=== PATIENT | male | born 1950 | race Caucasian/White ===

== ENCOUNTER 2025-04-03 18:50 | Emergency (ER) | payer OTHER, MEDICARE, SELFPAY ==
[2025-04-03] VITALS (8 sets, daily range): BP systolic 88–94; BP diastolic 56–65; PULSE 50–112; RESP 17–37; TEMP 36.6; O2SAT 89–99
--- NOTE | ~2025-04-03 | CT_ITS ---
EXAMINATION: CTA chest PE abdomen pel DATE: 04/03/2025 21:18 INDICATION: Dyspnea. Nausea. TECHNIQUE: Computed tomography angiography (CTA) of the chest was performed with 100 mL Omnipaque-350 intravenous contrast timed to evaluate the pulmonary arteries. Coronal maximum intensity projection 3D-reconstructions were created by the technologist. Computed tomography (CT) of the abdomen and pelvis was performed with intravenous contrast. Automated exposure control and iterative reconstruction technique were employed. The dose-length product was 2209.69 mGy-cm. COMPARISON: None. FINDINGS: CTA chest: There is mild emphysema. A calcified right lung nodule and calcified right hilar lymph nodes are consistent with old granulomatous disease. There are airspace and groundglass opacities in left upper lobe, consistent with pneumonia. There is mild atelectasis in the lower lobes. No pleural effusion. The heart size is normal. There are coronary artery calcifications. No pericardial effusion. There is no pulmonary embolus. There is moderate thoracic spondylosis. CT abdomen and pelvis: The liver and gallbladder are normal. Calcifications in the spleen are consistent with old granulomatous disease. There is a 12 mm hypodense mass in the spleen, likely a cyst or granulomatous disease. The pancreas and adrenal glands are normal. There is cortical thinning of the k idneys. There is a 7 mm cyst in left kidney. There are bilateral inguinal hernias containing fat. There is diverticulosis of the colon without evidence of diverticulitis. There are no dilated loops of bowel. The appendix is not visualized. There is a 2.1 cm pseudoaneurysm of right common femoral artery. There is a small volume of hematoma in the right retroperitoneum near the pseudoaneurysm. There are no pathologically enlarged lymph nodes. There is no free intraperitoneal fluid. There is a total left hip arthroplasty. There is severe lumbar spondylosis. IMPRESSION: 1. No pulmonary embolus. 2. Left upper lobe pneumonia. 3. Mild emphysema. 4. 2.1 cm pseudoaneurysm of right common femoral artery with small right retroperitoneal hematoma. Reviewed, dictated and finalized at location E. IMPRESSION: 1. No pulmonary embolus. 2. Left upper lobe pneumonia. 3. Mild emphysema. 4. 2.1 cm pseudoaneurysm of right common femoral artery with small right retrop eritoneal hematoma.
--- NOTE | ~2025-04-03 | XR_ITS ---
EXAMINATION: XR chest 1V portable COMPARISON: No comparisons available. HISTORY: SHOB, weakness FINDINGS: Mild pulmonary venous congestion. Small left basilar infiltrate and effusion. No pneumothorax. Mild cardiomegaly. Mediastinal and hilar contours are within normal limits. Bony thorax no acute abnormality. Miscellaneous: None Impression: Mild CHF Reviewed, dictated and finalized at location P. Impression: Mild CHF
--- NOTE | ~2025-04-03 | CT_ITS ---
EXAMINATION: CT brain wo con DATE: 04/03/2025 21:18 INDICATION: Weakness. TECHNIQUE: Computed tomography (CT) of the head was performed without intravenous contrast. The mA was adjusted according to patient size. Iterative reconstruction technique was employed. The dose-length product was 605.33 mGy-cm. COMPARISON: None FINDINGS: There is no intracranial hemorrhage, acute infarction, or abnormal intracranial mass lesion. The ventricles are normal in size. There are likely changes of ocular lens replacement surgeries. There is mild mucosal thickening in the paranasal sinuses. The mastoid air cells are normal. IMPRESSION: 1. Normal brain. Reviewed, dictated and finalized at location E. IMPRESSION: 1. Normal brain.
--- NOTE | 2025-04-03 19:50 | ECG_ITS ---
Test Date: 2025-04-03 20:09:14 Measurements Intervals [place] Rate: 87 P: 0 MS: 0 QRS: -23 QRSD: 170 T: -24 QT: 385 QTc: 463 Interpretive Statements ATRIAL FIBRILLATION RIGHT BUNDLE BRANCH BLOCK INFERIOR INFARCT, AGE INDETERMINATE BASELINE ARTIFACT- I, II, III, AVR, AVL, AVF, V4-V6 ABNORMAL ECG No previous ECG available for comparison Electronically Signed On 04-04-2025 06:17:34 CDT by Randal Segovia D.O.
[2025-04-03 20:09] LABS: Hematocrit 36.8 % (42.0-52.0); Hemoglobin 12.1 g/dL (14.0-18.0); Immature Granulocyte Percent A 0.3 % (0-0.5); Lymphocytes Absolute Auto 2.34 K/mm3 (0.9-3.2); Mean Corpuscular HGB Conc 32.9 g/dl (32-36); Mean Corpuscular Hemoglobin 34.9 pg (26-34); Mean Corpuscular Volume 106.1 fl (80-100); Nucleated Red Blood Cells Absolute Auto 0.050 K/mm3 (0.0-0.012); Nucleated Red Blood Cells Perc 0.6 % (0.0-0.2); Platelet Count Result 500 k/mm3 (150-375); Red Blood Count 3.47 M/mm3 (4.6-6.20); White Blood Count 9.1 K/mm3 (4.5-10.0)
--- NOTE | 2025-04-03 20:16 | ED_ITS ---
HPI - Weakness General Chief complaint: Weakness Stated complaint: WEAKNESS,LOW BP Time Seen by Provider: 04/03/25 20:09 Source: patient Mode of arrival: EMS Limitations: no limitations History of Present Illness HPI Narrative: Patient is a 74-year-old male presents to the emergency department complaining not feeling well is really tired over the past 1 week, worsening difficulty breathing, nausea. Patient denies any focal weakness or numbness. Patient's he wears 2-3 L of supplemental oxygen at baseline at all times. Patient notes that he has heart failure, COPD, AFib on Eliquis. Patient has recent changes to his medications and which is metoprolol was increased to 100 mg and had another change to medication that he is unsure of. Patient admits to being on diuretics. Patient denies any unilateral lower extremity swelling, new lower extremity swelling. Patient admits to orthopnea. Patient denies cough. Patient denies fever. Patient admits to nausea without any vomiting. Patient denies chest pain. [facility] and admits to recent cardiac catheterization. Related Data Allergies Allergy/AdvReac Type Severity Reaction Status Date / Time Sulfa (Sulfonamide Allergy Rash Verified 04/03/25 18:51 Antibiotics) Review of Systems 2 Review of Systems: A 10 system review of systems was completed on the patient and is negative except for what is stated in the HPI. Nursing and ancillary documentation was reviewed. Exam 2 Narrative: CONST: Mild respiratory distress, tachypneic to 23 breaths per minute, on 2.5 L supplemental oxygen via nasal cannula. HENMT: Head is normocephalic and atraumatic. Tacky mucous membranes. No posterior oropharynx erythema. EYES: No scleral icterus. No conjunctival injection or pallor. PERRL. NECK: No meningeal signs. RESP: Speaking in phrases. Diminished breath sounds diffusely, end-expiratory wheeze with a mildly prolonged expiratory phase. CARDIO: Tachycardic rate. Irregularly irregular rhythm. 2+ DP and radial pulses bilaterally. GI: Nondistended. No tenderness to palpation. Soft. : No CVA tenderness to palpation. SKIN: No rashes or lesions noted on exposed skin. NEURO: Oriented x3. Moves all extremities. No focal neurological deficits. EXTREM/MSK/BACK: No pedal edema. No active bleeding coming from the right groin recent catheterization site. PSYCH: Normal affect. Course Vital Signs Vital signs: Vital Signs Temperature 97.8 F 04/03/25 19:32 Pulse Rate 50 L 04/03/25 19:32 Respiratory Rate 18 04/03/25 19:32 Blood Pressure 88/56 L 04/03/25 19:32 Pulse Oximetry 99 04/03/25 19:32 Oxygen Delivery Room Air 04/03/25 19:32 Temperature 97.8 F 04/03/25 19:32 Pulse Rate 95 04/04/25 05:02 Respiratory Rate 19 04/04/25 05:02 Blood Pressure 112/73 04/04/25 05:02 Pulse Oximetry 93 04/04/25 05:02 Oxygen Delivery Room Air 04/03/25 19:32 MDM - Weakness MDM Narrative Medical decision making narrative: Patient presents with the above complaint. Initial vitals are remarkable for bradycardia with a pulse of 50, a my examination patient is tachycardic with a pulse of 102. Low blood pressure with a blood pressure of 88/56. Physical examination as noted above. Differential diagnosis includes but not limited to: Heart failure exacerbation, COPD exacerbation, ACS, pulmonary embolism, pneumonia, metabolic derangement, dehydration, electrolyte derangement, adverse effect of medication, symptomatic bradycardia. Plan discussed: Laboratory analysis, EKG, continues cardiac monitoring, continuous pulse oximetry, CT head, CT chest abdomen pelvis, blood cultures, patient was reportedly given a 1 L bolus by EMS, given concern for fluid overload limited crystalloids administer with ideal body weight being in the 70 kg range, patient given additional 500 cc bolus, DuoNeb breathing treatment, Zofran, will consider NIPPV if patient doesn't have improvement in his dyspnea. VBG ordered. Patient is on his baseline home O2. EKG performed at 8:09 p.m. reveals a rate of 87, rhythm is atrial fibrillation, right bundle branch block, no ST elevations or depressions, Q-wave present in lead 3, AVF, V3, V2, V1, QRS duration is 170 milliseconds, QTC interval is 463 milliseconds, no old EKG on file for comparison. CBC reveals a hemoglobin of 12.1, platelet count of 500. VBG reveals a pCO2 of 43.8, pH is 7.349. Comprehensive metabolic panel reveals a sodium 136, creatinine 1.32, glucose of 127. Total creatine kinase is 22. CRP is 11.6. BNP is 872. Lipase 31. Procalcitonin is 0.2. TSH is 2.22. Magnesium is 2.2. Phosphorus is 3.1. Lactic acid is 2.5. COVID and influenza and RSV testing are negative. Troponin is less than 0.012. CT of the head reveals no acute intracranial abnormality. CT of the chest reveals no evidence of acute main/proximal central pulmonary embolism. Cardiomegaly. Patchy ground-glass nodular infiltrates, may reflect infection/inflammation and/or aspiration. No pleural effusion or pneumothorax. CT abdomen pelvis reveals right pericolic gutter irregular fluid collection/hematoma with surrounding stranding 2.1 x 3.3 cm. Suspect proximal right common femoral artery pseudoaneurysm 1.7 cm. Correlate with dedicated ultrasound. Possible sequelae of recent intervention, correlate clinically. Urinary bladder wall thickening, nonspecific. Correlate with urinalysis. No hydronephrosis or nephrolithiasis. Questionable renal cortical low attenuation areas, artifact versus infection. No bowel obstruction or inflammation. Diverticulosis. Hepatic steatosis and hepatomegaly. Patient blood pressure is responding to IV fluids, no signs of any pulmonary edema on CT, most recent blood pressure is 98/69. Patient ordered antibiotics and further IV fluids. Urinalysis reveals 3+ glucose and greater than 1.045 specific gravity. [facility] contacted, pending call back. I spoke with Dr. Faust from the [facility] who has accepted the patient for transfer. CRITICAL CARE ADDENDUM: Indication: Hypotension, bradycardia, dysrhythmia, heart failure, sepsis Time type: intermittent I provided a total of 45 minutes of critical care excluding separately billable procedures. This includes time w/ initial bedside evaluation, reviewing old records, review of testing done while under my care, discussion w/ nurses, and guiding the patient?s care while in the emergency department. Approximate time distribution: 10 minutes ? Initial evaluation, d/w involved parties, attempting to gather old records. 10 minutes ? Documenting medical record 10 minutes ? Review of results (EKGs, labs, imaging) 10 minutes ? Serial repeat bedside evaluation 5 minutes ? Discussing case with multiple providers Please see main chart for details. Excludes separately billable procedures. Medical Records Attestation: I reviewed the patient's medical records. Lab Data Attestation: I reviewed the patient's lab results. 04/03/25 20:02 04/03/25 20:02 Labs: Lab Results 04/03/25 04/03/25 04/03/25 Range/Units 20:02 20:17 20:28 WBC 9.1 (4.5-10.0) K/mm3 RBC 3.47 L (4.6-6.20) M/mm3 Hgb 12.1 L (14.0-18.0) g/dL Hct 36.8 L (42.0-52.0) % MCV 106.1 H (80-100) fl MCH 34.9 H (26-34) pg MCHC 32.9 (32-36) g/dl RDW 16.0 H (11.5-14.5) % Plt Count 500 H (150-375) k/mm3 MPV 9.9 (7.4-10.4) fl Immature Gran % (Auto) 0.3 (0-0.5) % Neut % (Auto) 57.1 (45.5-73.1) % Lymph % (Auto) 25.8 (18.3-44.2) % Bulloch % (Auto) 11.1 H (2.6-8.5) % Eos % (Auto) 4.4 (0-4.4) % Baso % (Auto) 1.3 H (0.2-1.2) % Lymph # (Auto) 2.34 (0.9-3.2) K/mm3 Bulloch # (Auto) 1.0 H (0.1-0.6) K/mm3 Eos # (Auto) 0.4 H (0-0.3) K/mm3 Baso # (Auto) 0.1 (0.0-0.1) K/mm3 Abs Immat Gran (auto) 0.03 (0.00-0.031) K/mm3 Absolute Neuts (auto) 5.2 (1.3-6.7) K/mm3 Absolute Nucleated RBC 0.050 H (0.0-0.012) K/mm3 Nucleated RBC % 0.6 H (0.0-0.2) % PT 20.6 H (11.1-14.7) Seconds INR 1.8 APTT 46.8 H (22.3-36.8) Seconds Sodium 136 L (137-145) mmol/L Potassium 3.6 (3.4-5.0) mmol/L Chloride 103 (98-107) mmol/L Carbon Dioxide 24 (22-30) mmol/L Anion Gap 9 (4-12) mmol/L BUN 19 (9-20) mg/dL Creatinine 1.32 H (0.7-1.3) mg/dL Estim Creat Clear Calc 57 ml/min Estimated GFR 53 L (59 - ) Glucose 127 H (65-110) mg/dL Lactic Acid 2.5 H (0.7-2.0) mmol/L Calcium 8.9 (8.4-10.2) mg/dL Phosphorus 3.1 (2.5-4.5) mg/dL Magnesium 2.2 (1.6-2.3) mg/dL Total Bilirubin 0.4 (0.2-1.3) mg/dL AST 50 (17-59) U/L ALT 27 (6-50) U/L Alkaline Phosphatase 96 (38-126) U/L Total Creatine Kinase 22 L (55-170) U/L Troponin I < 0.012 (0.000-0.034) ng/mL C-Reactive Protein 11.6 H (<1.0) mg/dL NT-Pro-B Natriuret Pep 872 H (19.9-100) pg/mL Total Protein 7.8 (6.3-8.2) g/dL Albumin 3.5 (3.5-5.1) g/dL Lipase 31 (23-300) U/L Procalcitonin 0.2 ng/mL TSH (Reflex) 2.220 (0.465-4.68) uIU/mL Urine Color (Yellow) Urine Appearance (Clear) Urine pH (5.0-9.0) Ur Specific Dola (1.001-1.035) Urine Protein (Negative) mg/dL Urine Glucose (UA) (Negative) mg/dL Urine Ketones (Negative) mg/dL Ur Blood (Man) (Negative) Urine Nitrate (Negative) Urine Bilirubin (Negative) Urine Urobilinogen (<2.0) mg/dL Add Ur Microanalysis Leukocyte Esterase Rfl (Negative) SHELLY/UL Urine RBC (0-2) /hpf Urine WBC (0-3) /hpf Ur Squamous Epith Cells (Few) /hpf Urine Bacteria /hpf Urine Casts Influenza A (RT-PCR) Negative (Negative) Influenza B (RT-PCR) Negative (Negative) RSV (RT-PCR) Negative (Negative) SARS-CoV-2 RNA (RT-PCR) Negative (Negative) 04/03/25 04/03/25 Range/Units 22:34 22:37 WBC (4.5-10.0) K/mm3 RBC (4.6-6.20) M/mm3 Hgb (14.0-18.0) g/dL Hct (42.0-52.0) % MCV (80-100) fl MCH (26-34) pg MCHC (32-36) g/dl RDW (11.5-14.5) % Plt Count (150-375) k/mm3 MPV (7.4-10.4) fl Immature Gran % (Auto) (0-0.5) % Neut % (Auto) (45.5-73.1) % Lymph % (Auto) (18.3-44.2) % Bulloch % (Auto) (2.6-8.5) % Eos % (Auto) (0-4.4) % Baso % (Auto) (0.2-1.2) % Lymph # (Auto) (0.9-3.2) K/mm3 [place] # (Auto) (0.1-0.6) K/mm3 Eos # (Auto) (0-0.3) K/mm3 Baso # (Auto) (0.0-0.1) K/mm3 Abs Immat Gran (auto) (0.00-0.031) K/mm3 Absolute Neuts (auto) (1.3-6.7) K/mm3 Absolute Nucleated RBC (0.0-0.012) K/mm3 Nucleated RBC % (0.0-0.2) % PT (11.1-14.7) Seconds INR APTT (22.3-36.8) Seconds Sodium (137-145) mmol/L Potassium (3.4-5.0) mmol/L Chloride (98-107) mmol/L Carbon Dioxide (22-30) mmol/L Anion Gap (4-12) mmol/L BUN (9-20) mg/dL Creatinine (0.7-1.3) mg/dL Estim Creat Clear Calc ml/min Estimated GFR (59 - ) Glucose (65-110) mg/dL Lactic Acid 1.6 (0.7-2.0) mmol/L Calcium (8.4-10.2) mg/dL Phosphorus (2.5-4.5) mg/dL Magnesium (1.6-2.3) mg/dL Total Bilirubin (0.2-1.3) mg/dL AST (17-59) U/L ALT (6-50) U/L Alkaline Phosphatase (38-126) U/L Total Creatine Kinase (55-170) U/L Troponin I (0.000-0.034) ng/mL C-Reactive Protein (<1.0) mg/dL NT-Pro-B Natriuret Pep (19.9-100) pg/mL Total Protein (6.3-8.2) g/dL Albumin (3.5-5.1) g/dL Lipase (23-300) U/L Procalcitonin ng/mL TSH (Reflex) (0.465-4.68) uIU/mL Urine Color Yellow (Yellow) Urine Appearance Clear (Clear) Urine pH 5.0 (5.0-9.0) Ur Specific Dola > 1.045 H (1.001-1.035) Urine Protein Trace (Negative) mg/dL Urine Glucose (UA) 3+ H (Negative) mg/dL Urine Ketones Negative (Negative) mg/dL Ur Blood (Man) Negative (Negative) Urine Nitrate Negative (Negative) Urine Bilirubin Negative (Negative) Urine Urobilinogen 1.0 (<2.0) mg/dL Add Ur Microanalysis Reviewed Leukocyte Esterase Rfl Negative (Negative) SHELLY/UL Urine RBC 0-2 (0-2) /hpf Urine WBC 0-5 (0-3) /hpf Ur Squamous Epith Cells Occasional (Few) /hpf Urine Bacteria None seen /hpf Urine Casts >20 Influenza A (RT-PCR) (Negative) Influenza B (RT-PCR) (Negative) RSV (RT-PCR) (Negative) SARS-CoV-2 RNA (RT-PCR) (Negative) ABG Data ABG results: 04/03/25 20:28 VBG pH 7.349 VBG pCO2 43.8 VBG pO2 131.4 H VBG HCO3 23.6 L O2 Delivery Device Not Reportable O2 Liters/Min Not Reportable FiO2 21 Critical Care Time Critical Care Time Critical Care Time: Yes Total Critical Care Time: 45 Discharge Plan Discharge Clinical Impression: Heart failure, Pseudoaneurysm, Symptomatic bradycardia, Atrial fibrillation, Hypotension Pneumonia Qualifiers: Pneumonia type: due to unspecified organism Laterality: unspecified laterality Lung location: unspecified part of lung Qualified Code(s): J18.9 - Pneumonia, unspecified organism Patient Disposition: [facility] Condition: Serious Patient Language: Mohawk Follow-up/Referrals: [facility] [Primary Care Provider, Medical] Time of Disposition: 23:51
[2025-04-03 20:21] LABS: Alanine Aminotransferase 27 U/L (6-50); Albumin Level 3.5 g/dL (3.5-5.1); Alkaline Phosphatase 96 U/L (38-126); Anion Gap 9 mmol/L (4-12); Aspartate Amino Transferase 50 U/L (17-59); Bilirubin,Total 0.4 mg/dL (0.2-1.3); Blood Urea Nitrogen 19 mg/dL (9-20); Calcium 8.9 mg/dL (8.4-10.2); Carbon Dioxide 24 mmol/L (22-30); Chloride 103 mmol/L (98-107); Estimated CRCL calculation 57 ml/min; Estimated Glomerular Filt Rate 53; Glucose 127 mg/dL (65-110); Potassium 3.6 mmol/L (3.4-5.0); Sodium 136 mmol/L (137-145); Total Protein 7.8 g/dL (6.3-8.2)
[2025-04-03 20:48] LABS: Creatine Kinase 22 U/L (55-170); Lipase 31 U/L (23-300); Magnesium 2.2 mg/dL (1.6-2.3)
[2025-04-03 20:52] LABS: Procalcitonin 0.2 ng/mL
[2025-04-03 20:54] LABS: NT Pro B Type Natriuretic Pept 872 pg/mL (19.9-100)
[2025-04-03 20:58] LABS: CRP 11.6 mg/dL (<1.0)
[2025-04-03 21:17] LABS: Fractional Inspired Oxygen 21 %; HCO3 VBG 23.6 mEq/l (24.0-30.0); PCO2 VBG 43.8 mmHg (42.0-48.0); PO2 VBG 131.4 mmHg (35.0-45.0); pH VBG 7.349 (7.300-7.400)
[2025-04-03 21:18] LABS: Influenza A QL RT-PCR Negative (Negative); Influenza B QL RT-PCR Negative (Negative); RSV RNA, RT-PCR Negative (Negative); SARS-CoV-2 RNA PCR Negative (Negative)
[2025-04-03 21:21] LABS: Thyroid Stimulating Hormone Reflex 2.220 uIU/mL (0.465-4.68)
[2025-04-03] MEDS: ALBUTEROL SULFATE NEB 2.5 MG/3 ML INH 5 MG INHALATION (21:29)
[2025-04-03] MEDS: IPRATROPIUM 0.5 MG/ALBUTEROL SULFATE 2.5 MG (BASE) AMPUL.NEB 3 ML INHALATION ×3 (21:32→21:58)
--- NOTE | 2025-04-03 21:52 | PCRCNOTE ---
Updraft treatment delayed due to stabilizing and intubating another patient. Multiple orders were placed within same timeframe.
[2025-04-03] MEDS: ONDANSETRON INJ 4 MG/2 ML VIAL IV PUSH (22:20)
[2025-04-03] MEDS: SODIUM CHLORIDE 0.9% IV 500 ML 999 ML IV CONT ×2 (22:20→22:52)
[2025-04-03 22:31] LABS: Troponin I < 0.012 ng/mL (0.000-0.034)
[2025-04-03 22:37] LABS: INR 1.8; Prothrombin Time 20.6 Seconds (11.1-14.7)
[2025-04-03 22:38] LABS: Partial Thromboplastin Time 46.8 Seconds (22.3-36.8)
[2025-04-03] MEDS: cefTRIAXone 2 GM in SODIUM CHLORIDE 0.9% IV 100 ML 200 ML IVPB (22:55)
[2025-04-03 22:56] LABS: Add Urine Microscopic? YES; Appearance Urine Clear (Clear); Glucose Urine UA 3+ mg/dL (Negative); Leukocyte Esterase Ur Negative LEU/UL (Negative); Need Manual Microscopic Reviewed; Nitrate Urine Negative (Negative); Non Pathogenic Casts >20; Specific Grav Ur > 1.045 (1.001-1.035)
[2025-04-03] MEDS: DOXYCYCLINE IV 100 MG in SODIUM CHLORIDE 0.9% IV 100 ML IVPB (23:26)
[2025-04-03] MEDS: SODIUM CHLORIDE 0.9% IV 1,000 ML 125 ML IV CONT (23:26)
[2025-04-04] VITALS (12 sets, daily range): BP systolic 79–113; BP diastolic 44–84; PULSE 82–98; RESP 14–45; O2SAT 90–99
--- NOTE | 2025-04-04 00:36 | PC.NURSE ---
nurse to nurse report given to Anais CARLOS at [facility] in [facility]. Pt will be going to [phone] and has been accepted by Dr Faust
== END 2025-04-04 06:54 ==
PROVIDERS: Emergency Provider Student in an Organized Health Care Education/Training Program
DX: J18.9 Pneumonia, unspecified organism (principal); I72.4 Aneurysm of artery of lower extremity; I95.9 Hypotension, unspecified; I50.9 Heart failure, unspecified; I48.91 Unspecified atrial fibrillation; R00.1 Bradycardia, unspecified; J43.9 Emphysema, unspecified; Z99.81 Dependence on supplemental oxygen; Z20.822 Contact with and (suspected) exposure to COVID-19; Z79.01 Long term (current) use of anticoagulants
CPT/HCPCS: 36415; 70450; 71045; 71275; 74177; 80053; 81001; 82550; 82803; 83605; 83690; 83735; 83880; 84100; 84145; 84443; 84484; 85025; 85610; 85730; 86140; 87637; 93005; 94640; 96361; 96365; 96367; 96375; 99285; J0696; J2405; J2919; J7030; J7040; Q9967